=== PATIENT | male | born 1960 | race Caucasian/White ===

== ENCOUNTER → 2020-01-15 08:23 | Outpatient (BNVA) | payer OTHER, SELFPAY | PROVIDERS: PCP Internal Medicine; Referring Provider Internal Medicine; Visit Provider Orthopaedic Surgery | DX: Z76.89 Persons encountering health services in other specified circumstances (principal) ==

== ENCOUNTER → 2020-02-13 14:43 | Outpatient (BNVA) | payer OTHER, SELFPAY | PROVIDERS: PCP Internal Medicine; Referring Provider Internal Medicine; Visit Provider Surgery | DX: Z76.89 Persons encountering health services in other specified circumstances (principal) ==

== ENCOUNTER 2020-02-25 07:54 | Outpatient (REF) | payer OTHER, SELFPAY ==
[2020-02-25 07:57] VITALS: BP 156/84; PULSE 79; RESP 16; TEMP 36.3; O2SAT 100
[2020-02-25 08:01] VITALS: BMI 24.5
[2020-02-25 08:25] VITALS: BP 121/82; PULSE 72; RESP 16; O2SAT 100
--- NOTE | 2020-02-25 08:59 | OP_ITS ---
SURGEON: Jalil Ojeda MD INDICATIONS: The patient is a 59-year-old male, with a 1 cm size subcutaneous mass on the posterior neck. This was small bile. He wanted this removed. He understood technique of procedure and is aware of the risks, benefits, and alternatives. PREOPERATIVE DIAGNOSIS: Subcutaneous mass, posterior neck. POSTOPERATIVE DIAGNOSIS: Subcutaneous mass, posterior neck. PROCEDURE PERFORMED: Excision of subcutaneous mass, posterior neck. ESTIMATED BLOOD LOSS: COMPLICATIONS: ANESTHESIA: ASSISTANTS: SPECIMENS: DESCRIPTION OF PROCEDURE: He was brought to the minor procedure room and placed supine on the table. The subcutaneous mass was on the right side of the posterior neck. This area was prepped and draped. Lidocaine 1% was used for local anesthesia. I then made an incision on the skin overlying this mass using blade #15. It was carried down sharply with Metzenbaum scissors through the subcutaneous layer until the subcutaneous mass was visualized. We sharply dissected the subcutaneous mass off the rest of the fatty tissue until this was delivered and sent as specimen. Again, this was about almost 1 cm, round and well defined. I irrigated the area of excision and closed the incision full-thickness with nylon 3-0 interrupted sutures. Dressings were applied. He tolerated the procedure well. There were no complications noted. He will be seen in the office for followup for removal of sutures. MD KENZIE Malik/SAWYERL / [id number]
--- NOTE | 2020-02-25 14:29 | PM.OP ---
Brief Operative Note Date of Service: 02/25/20 Pre-op diagnosis: subcutaneous mass post neck Post-op diagnosis: same Procedure: exc of subcutaneous mass posterior neck under local anes Surgeon: Jalil Ojeda MD Anesthesia: local Estimated blood loss (mL): 0 Pathology: other (subq mass) Condition: stable Disposition: other (home)
== END 2020-02-25 07:55 | disposition home or self-care (01) ==
LOC: HO.MS 07:54
PROVIDERS: PCP Internal Medicine; Visit Provider Surgery
PROC: (CPT 21555; principal; 2020-02-25 08:00)
DX: R22.1 Localized swelling, mass and lump, neck (principal)
CPT/HCPCS: 21555; 88304

== ENCOUNTER → 2020-03-10 08:33 | Outpatient (BNVA) | payer OTHER, SELFPAY | PROVIDERS: PCP Internal Medicine; Visit Provider Surgery | DX: Z76.89 Persons encountering health services in other specified circumstances (principal) ==

== ENCOUNTER → 2020-07-02 09:26 | Outpatient (BNVA) | payer OTHER, SELFPAY | PROVIDERS: PCP Internal Medicine; Visit Provider Orthopaedic Surgery | DX: M65.351 Trigger finger, right little finger (principal) | CPT/HCPCS: 20550; J1100 ==

== ENCOUNTER 2020-08-07 09:49 | Outpatient (REF) | payer OTHER, SELFPAY ==
--- NOTE | ~2020-08-07 | CT_ITS ---
EXAMINATION: CT CHEST WITHOUT CONTRAST CLINICAL INFORMATION: Malignant neoplasm of the bronchus COMPARISON: CT chest without contrast 08/14/2019. TECHNIQUE: Multidetector volumetric CT imaging of the chest was done. Axial MIP volume rendering provided. Sagittal and coronal reformatted images were obtained. This CT examination was performed using dose optimization techniques as appropriate, variously including the following: *Automated exposure control *Adjustment of mA and/or kV according to patient size (this includes techniques or standardized protocols for targeted exams where dose is matched to indication/reason for exam; i.e. extremities or head) *Use of iterative reconstruction technique DLP: 157 mGy-cm FINDINGS: FAST FOOD DELIVERY DRIVER: Unremarkable LUNGS: The lungs are well expanded without any acute pneumonic process. There is a small 3 mm fissural based nodule, axial image 25/4 and a 2 mm calcified granuloma, left lower lobe, axial image 529/7. Minimal atelectatic changes seen in the left lung base. There are postsurgical changes, left medial base, without any recurrent disease. MEDIASTINUM: The thyroid lobes are symmetric and normal. The central trachea and bronchi are widely patent. Heart size and pulmonary vascularity is normal. There is no pericardial effusion. No abnormal size mediastinal lymph nodes or mass. PLEURA: There is no pleural effusion. No pleural mass or thickening. AXILLA: No lymphadenopathy. UPPER ABDOMEN: There is a 3 mm calcification, right hepatic lobe. The liver is otherwise unremarkable. Visualized spleen, pancreas and bilateral adrenal glands are unremarkable. No radiopaque gallstones seen. OSSEOUS STRUCTURES: No lytic or sclerotic process seen. CT/CT chest wo con IMPRESSION: Stable postsurgical changes, left medial base, lower lobe. No recurrent mass. Small nodules are stable. No abnormal mediastinal lymph nodes seen.
== END 2020-08-07 09:50 | disposition home or self-care (01) ==
LOC: HO.CT 09:49
PROVIDERS: Visit Provider Nurse Practitioner Family
DX: C34.90 Malignant neoplasm of unspecified part of unspecified bronchus or lung (principal)
CPT/HCPCS: 71250

== ENCOUNTER → 2020-10-06 15:36 | Outpatient (BNVA) | payer OTHER, SELFPAY | PROVIDERS: PCP Internal Medicine; Visit Provider Orthopaedic Surgery ==

== ENCOUNTER 2020-10-30 10:47 | Day surgery (SDC) | payer OTHER, SELFPAY ==
[2020-10-30 10:53] VITALS: BMI 24.2
[2020-10-30 11:00] VITALS: BP 142/89; PULSE 68; RESP 15; TEMP 36.6; O2SAT 99
[2020-10-30 12:15] VITALS: BP 121/79; PULSE 72; RESP 18; TEMP 36.8; O2SAT 100
--- NOTE | 2020-10-30 12:24 | MHC.SHP ---
Pre-Procedural Eval Section A Date of Service: 10/30/20 The patient is an INPATIENT: No Changes since office visit: No Cold of Flu in the past 2 weeks, No New Medical Problems, No Changes in Medication and No Patient answered all questions The History & Physical has been completed within 30 days and I have reviewed it.: Yes Section B Chief Complaint: trigger finger right hand Allergies: Allergies Allergy/AdvReac Type Severity Reaction Status Date / Time No Known Allergies Allergy Verified 10/30/20 10:53 [No Known Allergies*] Plan I have reviewed the history and physical and performed a pertinent physical examination on my patient. No changes have occurred unless specified.
--- NOTE | 2020-10-30 12:26 | P.OP_ITS ---
Operative Note Operative Note Date of Service: 10/30/20 Narrative: Operative Note Preop diagnosis: 1. Right small finger Trigger finger Postop diagnosis: 1. Right small finger Trigger finger Procedure: 1. Right small finger A1 ruslan release Surgeon: Maia Camilo MD Anesthesia: local block using 1% lidocaine with epinephrine Findings: No locking or catching after A1 ruslan release EBL: Less than 5 mL Tourniquet time: None Specimens: None Complications: None Disposition: Brought to recovery room in stable condition Plan: Follow-up for 7-10 days for wound check and suture removal Indications: The patient is 59 years old, with a right small finger trigger finger that has been unresponsive to nonoperative management. The risks and benefits of operative treatment including but not limited to risk of damage to blood vessels, nerves, tendons, infection, persistent pain, persistent symptoms, recurrence or possible need for additional surgery were discussed with the patient and the patient wishes to proceed with surgery. Procedure: Once consent was obtained a local block was performed in the preop area using a combination of 1% lidocaine with epinephrine. The patient was then brought back to the operating suite and placed on the operative table in supine position. A tourniquet was applied to the proximal aspect of the right upper extremity and the limb was prepped and draped in a standard surgical fashion. Once assured that we had a good block, a 1.5 cm oblique incision was made centered over the A1 ruslan of the right small finger . The incision was made through the skin to the subcutaneous tissues using a #15 blade. Careful dissection was made down to the level of the A1 ruslan using tenotomy scissors, with care being taken to protect the nearby neurovascular structures. A longitudinal incision was made in the A1 ruslan 1st using a #15 blade, then using tenotomy scissors under direct visualization. The A1 ruslan was noted to be thickened. Following our A1 ruslan release, we no longer saw any locking or catching of the digit with flexion and extension. Once satisfied with our A1 ruslan release the wound was copiously irrigated with normal saline and hemostasis was obtained with a brief period of local pressure. The skin edges were reapproximated with some 5.0 nylon suture material and a sterile dressing was applied. The patient appears to have tolerated the procedure well and with no complic ations. All digits were well vascularized at the conclusion of the case.
== END 2020-10-30 12:33 | disposition home or self-care (01) ==
PROVIDERS: PCP Internal Medicine; Visit Provider Orthopaedic Surgery
PROC: (CPT 26055; principal; 2020-10-30 11:50)
DX: M65.351 Trigger finger, right little finger (principal); Z85.118 Personal history of other malignant neoplasm of bronchus and lung; Z90.2 Acquired absence of lung [part of]
CPT/HCPCS: 26055

== ENCOUNTER → 2020-11-17 15:46 | Outpatient (BNVA) | payer OTHER, SELFPAY | PROVIDERS: Visit Provider Physician Assistant ==

== ENCOUNTER 2021-03-01 16:49 | Outpatient (REF) | payer OTHER, SELFPAY | END 2021-03-01 16:50 | disposition home or self-care (01) | LOC: HO.HOSX 16:49 | PROVIDERS: Visit Provider Orthopaedic Surgery | DX: Z13.89 Encounter for screening for other disorder (principal) ==

== ENCOUNTER 2021-03-02 08:23 | Outpatient (REF) | payer OTHER, SELFPAY ==
--- NOTE | ~2021-03-02 | XR_ITS ---
EXAMINATION: XR ELBOW, LEFT CLINICAL INFORMATION: Pain. Left shoulder radiograph 10/11/2019. Right elbow radiograph 05/08/2014. COMPARISON: None TECHNIQUE: AP, lateral, and oblique views of the left elbow. FINDINGS: The radial head is normal in appearance. No arthropathic changes or dystrophic calcifications are visualized. Minimal enthesopathic changes are incidentally noted at the olecranon. Normal bone mineralization. No fractures. XR/XR elbow LT 2V IMPRESSION: Minimal enthesopathic changes at the triceps insertion upon the olecranon; otherwise, normal left elbow.
== END 2021-03-02 08:24 | disposition home or self-care (01) ==
LOC: HO.XRAY 08:23
PROVIDERS: PCP Internal Medicine; Visit Provider Orthopaedic Surgery
DX: M77.12 Lateral epicondylitis, left elbow (principal)
CPT/HCPCS: 20551; 73070; J1100